=== PATIENT | female | born 1970 | race Caucasian/White ===

== ENCOUNTER 2020-02-18 01:52 | Outpatient (CLI) | payer OTHER, SELFPAY ==
[2020-02-18 21:29] LABS: SARS-CoV-2 RNA PCR Negative
== END 2020-02-18 01:53 | disposition home or self-care (01) ==
LOC: ANHCOVIDDT 01:52
PROVIDERS: PCP Family Medicine; Visit Provider Plastic Surgery
DX: Z01.812 Encounter for preprocedural laboratory examination (principal); Z11.59 Encounter for screening for other viral diseases
CPT/HCPCS: 87635; C9803; U0003

== ENCOUNTER 2020-02-20 02:12 | Day surgery (SDC) | payer OTHER, SELFPAY ==
[2020-02-06 10:26] VITALS: BMI 26.4
--- NOTE | 2020-02-20 06:20 | HP_ITS ---
DATE OF SERVICE: 02/20/2020 PREOPERATIVE DIAGNOSIS: Subcutaneous mass, right dorsal wrist. HISTORY: The patient is 49. She was referred from [place] with a subcutaneous mass on the right dorsal wrist. This is a large cyst, spherical mass. It has been present at least since 2018 when we saw her. Previously, the mass subsided down, but has come back and much larger. We thought it was 2 masses at that time, now is at least 3 cm in diameter. It is occasionally painful. It does not move with the extensor tendons, sits over the radiolunate joint. This seems to be most likely a ganglion cyst and she was in favor of having it removed. It may be superficial and it maybe synovitis. She is prepared for excision of this with an incision as long as required probably running transversely. She is aware of complications, such as scarring, nerve injury, wound infection or dehiscence, pain postoperatively and possible need for therapy as well as anesthetic risks. She would like to proceed.. PAST MEDICAL HISTORY: MEDICATIONS: She is on progestin only control. She has Ativan as needed. ALLERGIES: NO KNOWN ALLERGIES TO MEDICATION. PAST SURGICAL HISTORY: Prior surgeries include a section in 2007 and 2008. She had a cone biopsy in 2006. She sees no specialist. HABITS: She is a nonsmoker. She says she might drink 14 alcoholic beverages in a week. REVIEW OF SYSTEMS: Otherwise negative. FAMILY HISTORY: Noncontributory. SOCIAL HISTORY: She lives in [place]. She is not employed. She is to her and she is a patient of Dr. Hatfield. PHYSICAL EXAM: GENERAL: She is pleasant and informative. She is 5 feet 5 inches, weighs 159 pounds. HEENT: Unremarkable. CHEST: Clear to auscultation. HEART: Regular rate and rhythm by palpation. ABDOMEN: Soft and nontender. EXTREMITIES: Exam reveals the mass over the dorsal right wrist. It is smooth and spherical. Does not significantly limit her range of motion. ASSESSMENT: Subcutaneous mass, right dorsal wrist. PLAN: Excision of subcutaneous mass, right dorsal wrist under MAC anesthetic. Yareli I MT: Mehdi BILLS
--- NOTE | 2020-02-20 07:12 | WPDHPUPDATE1 ---
History and Physical Update Update Date/Time: 02/20/20 07:12 History and Physical has been reviewed, including an updated exam of the patient. There are NO changes in the patient's condition. Risks, benefits, and alternatives have been discussed and questions answered. Patient agrees to proceed with procedure.
[2020-02-20] MEDS: LACTATED RINGERS 1,000 ML 30 ML IV CONT (07:59)
--- NOTE | 2020-02-20 08:04 | WPDANESEPPF ---
Anes - Initial Pre Proc Eval Procedure: Operation Date: 02/20/20 09:00 Proposed Procedures p Excision Subcutaneous Mass Right Dorsal Wrist - Hector Mims MD Date/Time: 02/20/20 08:04 Surgeon: Hector Mims MD Pre Op Diagnosis: 3 cm subcutaneous mass right dorsal wrist Patient Data Age: 49 Gender: F Height: 5 ft 5 in Weight: 72.12 kg Allergies Allergy/AdvReac Type Severity Reaction Status Date / Time No Known Allergies Allergy Verified 02/06/20 10:27 Home Medications Medication Instructions Recorded Confirmed Type lorazepam 0.5 mg PO BID PRN 02/06/20 02/20/20 History norethindrone (contraceptive) 0.35 mg PO DAILY 02/06/20 02/20/20 History [Felicity] Patient hx anesthesia problems: other (motion sickness) Family hx anesthesia problems: none [facility] Past Medical History Medical History Anxiety Social History Social History Smoking status: Never smoker Alcohol intake: current Drinks per week: 20 Spiritual care concerns: No Anes - Eval Final PreProcedure Day of Procedure 02/20/20 08:04 Patient weight: normal Heart: regular rate and rhythm Lungs: clear to auscultation Airway: Mallampati scale class II Neurological: alert and oriented Last oral intake: >/= 8 hours ASA classification: II Emergent: no Anesthetic plan: proceed Anesthesia type and monitoring: general GIVS and standard monitoring Informed Consent: The patient's anesthetic plan and its attendant risks and benefits were discussed with the patient/family/POA. Questions were solicited and answers provided to the satisfaction of the patient/family/POA.
[2020-02-20] MEDS: LIDO 1%/EPINEPHRINE 1:100,000 20 ML VIAL 3 ML INFILTRATE (08:30)
[2020-02-20 08:32] VITALS: BP 143/80; PULSE 71; TEMP 36.8; O2SAT 100
--- NOTE | 2020-02-20 08:34 | PM.OP ---
Procedure Note - Brief Procedure Note - Brief Date of procedure: 02/20/20 Pre-op diagnosis: 3 cm subcutaneous mass right dorsal wrist Post-op diagnosis: same Procedure performed: 2.5 cm excision of ganglion cyst or right dorsal wrist. Anesthesia: MAC Surgeon: Hector Mims MD Estimated blood loss (mL): 1 Tourniquet time (min): 7 Drains: No Packing: No Pathology: none sent Complications: No immediate complications Condition: stable Disposition: same day
--- NOTE | 2020-02-20 09:08 | SUR.OPER ---
EBL:0cc
[2020-02-20 09:17] VITALS: BP 116/63; PULSE 83; RESP 16; O2SAT 96
--- NOTE | 2020-02-20 09:43 | PM.PROC ---
Procedure Note - Detailed Date of procedure: 02/20/20 Pre-op diagnosis: 3 cm subcutaneous mass right dorsal wrist Post-op diagnosis: other (Ganglion cyst ) Procedure performed: 2.5 cm excision of right dorsal wrist ganglion cyst. Description of procedure: the appropriate wrist was marked in preop. The patient was taken to the operating room and placed supine on the operating table. The right hand was extended over the hand table where it were was prepped and draped in usual fashion. A time-out was held and confirmed. She was given IV sedation. The site was remarked for the incision and locally infiltrated with 1% lidocaine with epinephrine. The tourniquet was inflated to 250 mmHg. The incision was made as marked. It was carried carefully past subcutaneous neurovascular structures. The cyst was in countered superficial to the extensor tendons. It was carefully dissected around its periphery to its base at the dorsal wrist capsule. Care was taken not to enter the capsule. Remnants of the base of the cyst were cauterized. A [id number] 3-0 Ethibond suture was placed across the site of origin. This did not impede passive flexion of the wrist. The skin was closed with interrupted intradermal 4-0 Monocryl sutures. The usual bandage with Coban wrap was applied and the tourniquet released. She is discharged with instructions in wound care and follow-up and has a prescription for hydrocodone [id number] sent in. Surgeon: Hector Mims MD
[2020-02-20 09:45] VITALS: BP 112/72; PULSE 78; RESP 16
[2020-02-20 10:15] VITALS: BP 141/74; PULSE 66; RESP 20
== END 2020-02-20 10:40 | disposition home or self-care (01) ==
PROVIDERS: PCP Family Medicine; Visit Provider Plastic Surgery
PROC: (CPT 25111; principal; 2020-02-20 09:00)
DX: M67.431 Ganglion, right wrist (principal); F41.9 Anxiety disorder, unspecified
CPT/HCPCS: 25111; A9270; J2250; J2704; J3010; J7120